=== PATIENT | male | born 1990 | race Caucasian/White ===

== ENCOUNTER 2018-02-01 12:15 | Observation (INO) | payer OTHER ==
[2018-02-01 14:15] LABS: PLATELET COUNT 274 10^3/uL (150-400)
[2018-02-01] MEDS ORDERED: IOPAMIDOL (ISOVUE-300) 100 ML BTL ONE (14:50)
[2018-02-01] MEDS ORDERED: ceFAZolin 2 GM/DEXTROSE 100 ML IV ONE (15:29)
--- NOTE | 2018-02-01 16:20 | GHP ---
[f rep st] HISTORY AND PHYSICAL DATE OF ADMISSION: 02/01/2018 CHIEF COMPLAINT: Right lower quadrant pain. PRESENT ILLNESS: A 27-year-old male with abrupt onset of right lower quadrant pain earlier this morn ing. CT in the emergency department shows acute appendicitis. ALLERGIES: None. CURRENT MEDICATIONS: None. The patient smokes "a lot of marijuana." PREVIOUS SURGERY: None. REVIEW OF SYSTEMS: Denies asthma, heart trouble, diabetes, epilepsy, rheumatic fever. SOCIAL HISTORY: Cigarette use, none. Ethanol use, none. Employed as a personal computer network engineer. PHYSICAL EXAM: GENERAL: Pleasant male in minimal distress. HEENT: No scleral icterus. Pharynx cl ear. NECK: Supple without adenopathy. LUNGS: Clear. HEART: Normal S1, S2 without murmur. ABDOM EN: Soft except the right lower quadrant where there is tenderness and mild guarding. LABORATORY DATA: White blood count is 21,000. ASSESSMENT: CT documented acute appendicitis. Appendix at least 10 mm. RECOMMENDATIONS: Laparoscopic appendectomy. Risks and benefits of the surgery were explained to the patient. I did briefly discuss the potential of the antibiotic management and explained that his ap pendix did not seem to me to be an early appendicitis. The patient is agreeable to proceed with surg lorna. /[id number]/MODL
[2018-02-01] MEDS ORDERED: ceFAZolin 2 GM/SWFI 2 GM/20 ML SYR IVP ONE (16:35)
--- NOTE | 2018-02-01 16:38 | EDPHY ---
H & P Time Seen by Provider: 02/01/18 13:32 HPI/ROS: CHIEF COMPLAINT: Abdominal pain HISTORY OF PRESENT ILLNESS: 27-year-old male presents to the emergency department with right-sided abdominal pain. The pain began abruptly around 930 this morning while he was sitting at his desk working. The pain was initially in the right upper quadrant. It lasted for approximately 3 hr. It improved although is still on the right side but now more in the right lower side is more mild. He feels nauseous and has not had much of an appetite. No vomiting. He has had chronic loose stools over last 1 year. He has not followed up with primary care provider or systems coordinator for this. No fevers or chills. No chest pain or difficulty breathing. He has no radiation of pain. No testicular pain. No flank pain. No urinary symptoms. REVIEW OF SYSTEMS: Constitutional: No fever, no chills. Eyes: No double or blurry vision. ENT: No sore throat. Respiratory: No cough, no shortness of breath. Cardiac: No chest pain. Gastrointestinal: Abdominal pain as above. Chronic diarrhea as noted above. No vomiting. Genitourinary: No dysuria. Musculoskeletal: No neck or back pain. Skin: No rashes. Neurological: No headache. Past Medical/Surgical History: Chronic diarrhea Social History: Single Smoking Status: Never smoked Physical Exam: General Appearance: Alert, no distress. Afebrile. Eyes: Pupils equal and round. Extraocular motions are all intact. ENT: Mouth: Mucous membranes moist. Respiratory: No wheezing, rhonchi, or rales, lungs are clear to auscultation. Cardiovascular: Regular rate and rhythm. Gastrointestinal: Abdomen is soft. He has tenderness with palpation especially the right lower quadrant overlying McBurney's point. He has some mild pain with palpation of the right upper quadrant. There is no rebound, guarding or masses noted. No CVA tenderness bilaterally. Genitourinary: Deferred Neurological: Alert and oriented x 3, cranial nerves II through XII grossly intact Skin: Warm and dry, no rashes. Musculoskeletal: Nontender to palpate along the cervical, thoracic or lumbar spine. Neck is supple. Extremities: Full range of motion and no peripheral edema. Psychiatric: Patient is oriented X 3, there is no agitation. Constitutional: Initial Vital Signs Temperature (C) 36.6 C 02/01/18 12:22 Heart Rate 72 02/01/18 12:22 Respiratory Rate 18 02/01/18 12:22 Blood Pressure 112/70 02/01/18 12:22 O2 Sat (%) 99 02/01/18 12:22 O2 Delivery Mode Room Air Allergies/Adverse Reactions: No Known Allergies Allergy (Unverified 02/01/18 12:24) Home Medications: Medication Instructions Recorded NK [No Known Home Meds] 02/01/18 Medical Decision Making - Diagnostics Imaging Results: Imaging Impressions Abdomen CT 02/01/18 14:41 Impression: 1. Acute appendicitis, with inflammatory thickening up to 10 mm. 2. No drainable abscess. Findings and recommendations discussed with Emergency Department Physician General Manager [employer], Tracy Patel PA-C, at 1519 hours, on February 01, 2018. Final report concurs with initial preliminary interpretation. Imaging: Discussed imaging studies w/ housecalls nurse Radiologist ED Course/Re-evaluation: 27-year-old male presents to the emergency department with right-sided abdominal pain. Laboratory studies reveal elevated white blood cell count of over 21,000. Chemistries are unremarkable. LFTs were normal. Urinalysis reveals no signs of inspection. Specifically no blood. I was concerned about possible acute appendicitis. I recommended CT imaging of the abdomen and pelvis. Pros and cons were discussed with the patient who verbalized understanding and agreed. CT scan of the abdomen pelvis reveals evidence of acute appendicitis without perforation. Case was discussed with on-call surgeon, Dr. Manjit Boyd, who came to evaluate the patient. He recommended giving the patient 2 g of IV Ancef and 500 mg of IV Flagyl. He will be kept NPO will be taken to the operating room for acute appendicitis. Case was discussed with Dr. Nicole Hassan, supervising physician, who did not directly evaluate the patient but agrees with treatment and plan. Differential Diagnosis: Including but not limited to acute appendicitis, cholecystitis, cholelithiasis, GERD, peptic ulcer disease, testicular torsion, urinary tract infection, kidney stone - Data Points Laboratory Results: Laboratory Results 02/01/18 13:44 02/01/18 13:44 02/01/18 02/01/18 02/01/18 14:30 13:44 13:44 WBC 21.19 10^3/uL H 10^3/uL (3.80-9.50) RBC 5.06 10^6/uL 10^6/uL (4.40-6.38) Hgb 16.0 g/dL g/dL (13.7-17.5) Hct 46.9 % % (40.0-51.0) MCV 92.7 fL fL (81.5-99.8) MCH 31.6 pg pg (27.9-34.1) MCHC 34.1 g/dL g/dL (32.4-36.7) RDW 12.4 % % (11.5-15.2) Plt Count 274 10^3/uL 10^3/uL (150-400) MPV 10.0 fL fL (8.7-11.7) Neut % (Auto) 86.6 % H % (39.3-74.2) Lymph % (Auto) 6.3 % L % (15.0-45.0) [place] % (Auto) 6.1 % % (4.5-13.0) Eos % (Auto) 0.2 % L % (0.6-7.6) Baso % (Auto) 0.2 % L % (0.3-1.7) Nucleat RBC Rel Count 0.0 % % (0.0-0.2) Absolute Neuts (auto) 18.35 10^3/uL H 10^3/uL (1.70-6.50) Absolute Lymphs (auto) 1.33 10^3/uL 10^3/uL (1.00-3.00) Absolute Monos (auto) 1.29 10^3/uL H 10^3/uL (0.30-0.80) Absolute Eos (auto) 0.04 10^3/uL 10^3/uL (0.03-0.40) Absolute Basos (auto) 0.05 10^3/uL 10^3/uL (0.02-0.10) Absolute Nucleated RBC 0.00 10^3/uL 10^3/uL (0-0.01) Immature Gran % 0.6 % % (0.0-1.1) Immature Gran # 0.13 10^3/uL H 10^3/uL (0.00-0.10) Sodium 139 mEq/L mEq/L (135-145) Potassium 4.5 mEq/L mEq/L (3.5-5.2) Chloride 104 mEq/L mEq/L (97-110) Carbon Dioxide 20 mEq/l L mEq/l (22-31) Anion Gap 15 mEq/L mEq/L (8-16) BUN 10 mg/dL mg/dL (7-23) Creatinine 0.8 mg/dL mg/dL (0.7-1.3) Estimated GFR > 60 Glucose 90 mg/dL mg/dL (70-100) Calcium 9.3 mg/dL mg/dL (8.5-10.4) Total Bilirubin 1.3 mg/dL mg/dL (0.1-1.4) Conjugated Bilirubin 0.5 mg/dL mg/dL (0.0-0.5) Unconjugated Bilirubin 0.8 mg/dL mg/dL (0.0-1.1) AST 31 IU/L IU/L (17-59) ALT 39 IU/L IU/L (21-72) Alkaline Phosphatase 92 IU/L IU/L (38-126) Total Protein 7.4 g/dL g/dL (6.3-8.2) Albumin 4.4 g/dL g/dL (3.5-5.0) Lipase 52 IU/L IU/L (23-300) Urine Color YELLOW Urine Appearance CLEAR Urine pH 5.0 (5.0-7.5) Ur Specific [place] 1.018 (1.002-1.030) Urine Protein NEGATIVE (NEGATIVE) Urine Ketones 1+ H (NEGATIVE) Urine Blood NEGATIVE (NEGATIVE) Urine Nitrate NEGATIVE (NEGATIVE) Urine Bilirubin NEGATIVE (NEGATIVE) Urine Urobilinogen NEGATIVE EU EU (0.2-1.0) Ur Leukocyte Esterase NEGATIVE (NEGATIVE) Urine RBC 1-3 /hpf /hpf (0-3) Urine WBC 1-3 /hpf /hpf (0-3) Ur Epithelial Cells NONE SEEN /lpf /lpf (NONE-1+) Urine Mucus 1+ /lpf /lpf (NONE-1+) Urine Glucose NEGATIVE (NEGATIVE) Medications Given: Discontinued Medications Metronidazole/Sodium Chloride (Flagyl 500 Mg (Premix)) 100 mls @ 100 mls/hr IV EDNOW ONE PRN Reason: Protocol Stop: 02/01/18 16:29 Last Admin: 02/01/18 16:17 Dose: 100 mls Departure - Departure Disposition: To OP Cath/Surgery Clinical Impression: Acute appendicitis Qualifiers: Acute appendicitis type: unspecified acute appendicitis type Qualified Code(s) : K35.80 - Unspecified acute appendicitis Condition: Good
[2018-02-01] MEDS ORDERED: LR 1,000 ML IV ONE (19:16)
[2018-02-01] MEDS ORDERED: MIDAZOLAM 2 MG/2 ML VIAL IVP ONE (19:29)
--- NOTE | 2018-02-01 19:29 | PDANEPAE ---
ANE History of Present Illness acute appendicitis, here for lap raghav ANA M Past Medical History - Cardiovascular History Hx Hypertension: No Hx Arrhythmias: No Hx Chest Pain: No Hx Coronary Artery / Peripheral Vascular Disease: No Hx CHF / Valvular Disease: No Hx Palpitations: No - Pulmonary History Hx Oxygen in Use at Home: No Hx Sleep Apnea: No Sleep Apnea Screening Result - Last Documented: Negative - Endocrine History Hx Diabetes: No ANE Review of Systems Review of Systems: - Exercise capacity Exercise capacity: >=4 METS ANE Patient History - Allergies Allergies/Adverse Reactions: No Known Allergies Allergy (Unverified 02/01/18 12:24) - Home Medications Home Medications: NK [No Known Home Meds] 02/01/18 [Last Taken Unknown] - NPO status NPO Status: no food or drink >8 hours NPO Since - Liquids (Date): 02/01/18 NPO Since - Liquids (Time): 09:00 NPO Since - Solids (Date): 01/31/18 NPO Since - Solids (Time): 22:00 - Anes Hx Anes Hx: no prior problems - Smoking Hx Smoking Status: Never smoked - Alcohol Use Alcohol Use: None - Family Anes Hx Family Anes Hx: none ANE Labs/Vital Signs - Labs Result Diagrams: 02/01/18 13:44 02/01/18 13:44 - Vital Signs Blood Pressure: 97/83 Heart Rate: 88 Respiratory Rate: 16 O2 Sat (%): 96 Height: 162.56 cm Weight: 67.585 kg ANE Physical Exam - Airway Neck exam: FROM Mallampati Score: Class 2 Mouth exam: normal dental/mouth exam, poor dentition Mouth image: 1 - chipped 2 - multiple missing 3 - multiple missing - Pulmonary Pulmonary: no respiratory distress, clear to auscultation - Cardiovascular Cardiovascular: regular rate and rhythym, no murmur, rub, or gallop - ASA Status ASA Status: I, E ANE Anesthesia Plan Anesthesia Plan: general endotracheal anesthesia
[2018-02-01] MEDS ORDERED: EPINEPHrine 1 MG/ML INJ ONE (20:44)
[2018-02-01] MEDS ORDERED: BUPIVACAINE 0.5% 30 ML SDV ONE (20:44)
[2018-02-01] MEDS ORDERED: fentaNYL 100 MCG/2 ML INJ ONE ×2 (21:05→21:36)
[2018-02-01] MEDS ORDERED: PROPOFOL 200 MG/20 ML VIAL ONE ×2 (21:05→22:00)
[2018-02-01] MEDS ORDERED: LIDOCAINE 2% 100 MG/5 ML SYR ONE (21:05)
[2018-02-01] MEDS ORDERED: ROCURONIUM 50 MG/5 ML VIAL ONE (21:05)
[2018-02-01] MEDS ORDERED: MIDAZOLAM 2 MG/2 ML VIAL ONE (21:11)
[2018-02-01] MEDS ORDERED: DESFLURANE 240 ML BOTTLE IH ONE (21:45)
[2018-02-01] MEDS ORDERED: ONDANSETRON 4 MG/2 ML VIAL IVP PRN ×2 (22:06→22:11)
--- NOTE | 2018-02-01 22:06 | POSTOPPROG ---
Post Op Note Date of Operation: 02/01/18 Surgeon: Manjit Boyd Pre-op Diagnosis: acute appy Post-op Diagnosis: same Indication: appemdicitis Procedure: lap appy Findings: acute appy Inf/Abcess present in the surg proc area at time of surgery?: No EBL: Minimal
[2018-02-01] MEDS ORDERED: HYDROmorphONE/DILAUDID 2 MG/ML INJ IVP PRN (22:11)
[2018-02-01] MEDS ORDERED: ACETAMINOPHEN 500 MG TAB PO PRN (22:11)
[2018-02-01] MEDS ORDERED: oxyCODONE IR 5 MG TAB PO PRN (22:11)
[2018-02-01] MEDS ORDERED: PROMETHAZINE HCL 25 MG/ML INJ IVP PRN (22:11)
[2018-02-01] MEDS ORDERED: fentaNYL 100 MCG/2 ML INJ IVP PRN (22:11)
[2018-02-01] MEDS ORDERED: NALOXONE HCL 0.4 MG/ML INJ IVP PRN (22:11)
--- NOTE | 2018-02-01 22:11 | POSTANESTH ---
Post Anesthetic Evaluation Cardiovascular Status: Normal, Stable, Similar to Pre-Op Cond Respiratory Status: Normal, Stable, Similar to Pre-op Cond. Level of Consciousness/Mental Status: Can Participate in Eval, Alert and Oriented Pain Control: Adequate, Prn Tx Ordered Nausea/Vomiting Control: Adequate, Prn Tx Ordered Complications Possibly Related to Anesthesia: None Noted
[2018-02-01] MEDS ORDERED: LR 1,000 ML IV SCH (22:30)
--- NOTE | 2018-02-01 22:57 | GOP ---
[f rep st] OPERATIVE REPORT DATE OF OPERATION: SURGEON: Manjit Boyd MD ANESTHESIA: General anesthesia. PREOPERATIVE DIAGNOSIS: Acute appendicitis. POSTOPERATIVE DIAGNOSIS: Acute appendicitis. PROCEDURE PERFORMED: Laparoscopic appendectomy. FINDINGS: INDICATIONS: Patient with a picture of acute appendicitis. DESCRIPTION OF PROCEDURE: The abdomen was scrubbed with ChloraPrep, draped in usual sterile fashion. Infraumbilical incision made. Veress needle used to achieve a pneumoperitoneum. A 12 mm trocar wa s placed, two 5 mm trocars elsewhere. The appendix was found to be quite retrocecal. The mesoappend ix was harvested with a Harmonic Scalpel; it was unusually fatty. Eventually, the base of the append ix was clearly defined on the cecum. This was amputated flush on the cecum with an Endo-GAMALIEL 45 blue cartridge. The appendix was placed in an Endopouch and extracted. There was no bleeding. The fasci al defect at the umbilicus closed with 0 Vicryl, skin with 4-0 Vicryl and Dermabond. The patient khloe erated the procedure well. /[id number]/MODL
[2018-02-02] MEDS: HYDROCODONE/APAP 5/325 TAB PO PRN ×2 (05:28→12:42)
--- NOTE | 2018-02-02 06:38 | GDS ---
[f rep st] DISCHARGE SUMMARY PRESENT ILLNESS: Patient was admitted with appendicitis. Had a laparoscopic appendectomy. Seems to be having uneventful recovery. DISPOSITION: Home. FOLLOW UP: With Dr. Boyd in a week. Call immediately for worsening pain, fever, vomiting, etc. /[id number]/MODL
[2018-02-02 11:46] VITALS: BP 117/80
== END 2018-02-02 13:01 | disposition home or self-care (01) ==
LOC: F1N 18:02
PROVIDERS: ADMIT Surgery; ATTEND Surgery
PROC: 0DTJ4ZZ Resection of Appendix, Percutaneous Endoscopic Approach (ICD-10-PCS; principal; 2018-02-01 18:00)
DX: K35.80 Unspecified acute appendicitis (principal)
CPT/HCPCS: 44970; 74177; G0378; 96374; J0171; J0690; J2001; J2250; J2704; J3010; Q9967

== ENCOUNTER 2018-05-13 | Emergency (ER) | payer OTHER | END 2018-05-13 04:44 | disposition home or self-care (01) ==